=== PATIENT | male | born 1955 | race African-American/Black ===

== ENCOUNTER 2024-03-07 15:01 | Outpatient (CLI) | payer OTHER ==
[2024-03-07 17:13] LABS: Bacteria/HPF None Seen HPF (None Seen); Bilirubin Negative (Negative); Blood, Urine Trace (Negative); Clarity Clear (Clear); Glucose, Urine (Dipstick) Normal (Negative); Ketone, Urine Negative (Negative); Leukocyte Negative Leu/uL (Negative); Nitrite Negative (Negative); Protein, Urine (Dipstick) Negative (Neg-Trace); RBC/HPF 0-3 HPF (0-3); Specific Gravity, Urine 1.022 (1.002-1.036); Squamous Epithelial 0-3 HPF (0-3); WBC/HPF 0-3 HPF (0-3)
[2024-03-07 17:20] LABS: #Basophils 0.03 10x3/uL (0.0-0.2); %Basophils 0.5 % (0.0-1.0); %Eosinophils 1.7 % (0.0-10.0); %Lymphocytes 40.6 % (21.0-51.0); %Monocytes 8.5 % (0.0-10.0); %Neutrophils 48.4 % (42.0-75.0); Hematocrit 38.4 % (42.0-52.0); Hemoglobin 12.6 g/dL (14.0-18.0); Mean Corpuscular HGB CONC 32.8 g/dL (32.0-36.0); Mean Corpuscular Hemoglobin 30.2 pg (27.0-31.0); Mean Corpuscular Volume 92.1 fL (78.0-98.0); Platelet Count 212 10x3/uL (130-400); RBC Distribution Width 13.2 % (11.5-14.5); Red Blood Cell (RBC) Count 4.17 mill/uL (4.70-6.10)
[2024-03-07 17:21] LABS: Anion Gap 10 mmol/L (10-20); BUN (Urea Nitrogen) 14 mg/dL (8.4-25.7); Calc. Creatinine Clearance 0 mL/min (70-130); Calcium 9.1 mg/dL (7.8-10.44); Carbon Dioxide 26 mmol/L (23-31); Chloride 106 mmol/L (98-107); Estimated GFR 89; Glucose 126 mg/dL (80-115); PTT 38.1 sec (22.9-36.1); Potassium 3.4 mmol/L (3.5-5.1); Prothrombin Time 13.2 sec (12.0-14.7); Sodium 139 mmol/L (136-145)
== END 2024-03-07 15:02 | disposition home or self-care (01) ==
LOC: LABBT 15:01
PROVIDERS: ATTEND Urology
DX: Z01.818 Encounter for other preprocedural examination (principal); N40.1 Benign prostatic hyperplasia with lower urinary tract symptoms; R97.20 Elevated prostate specific antigen [PSA]; I10 Essential (primary) hypertension; R35.1 Nocturia
CPT/HCPCS: 71046; 80048; 81001; 84153; 85025; 85610; 85730; 87086; 93005; 93010

== ENCOUNTER 2024-03-21 05:51 | Day surgery (SDC) | payer OTHER ==
[2024-03-07 15:46] VITALS: BMI 33.5
[2024-03-21] MEDS ORDERED: Ondansetron PF 4 MG/2 ML Vial ONE (06:07)
[2024-03-21] MEDS ORDERED: Dexamethasone 4 mg/ml Vial ONE (06:07)
[2024-03-21] MEDS ORDERED: Lidocaine 2% PF 5 ML VIAL ONE (06:07)
[2024-03-21] MEDS ORDERED: Rocuronium Bromide 10 MG/ML (10ML VIAL) ONE (06:07)
[2024-03-21] MEDS ORDERED: Dexmedetomidine 200 MCG/2 ML VIAL ONE (06:07)
[2024-03-21] MEDS ORDERED: Lidocaine 1% MPF 2 ML VIAL ONE (06:28)
[2024-03-21] MEDS ORDERED: cefTRIAXone (ROCEPHIN) 2 GM VIAL ONE (06:29)
[2024-03-21] MEDS ORDERED: LevoFLOXacin D5W 500 mg (100 mL) BAG ONE (06:29)
[2024-03-21] MEDS ORDERED: Sodium Chloride 0.9% 100 ML ONE (06:29)
[2024-03-21] MEDS ORDERED: Lidocaine 1% PF 5 ML VIAL ONE (07:08)
[2024-03-21] MEDS ORDERED: PROPOFOL 20 ML ONE ×2 (07:08→07:56)
[2024-03-21] MEDS ORDERED: Midazolam HCl 2 mg/2 ml Vial ONE (07:43)
[2024-03-21] MEDS ORDERED: Tamsulosin HCl 0.4 MG CAP ONE (08:20)
[2024-03-21] MEDS ORDERED: Phenazopyridine HCl 100 MG TAB ONE (08:20)
== END 2024-03-21 09:03 | disposition home or self-care (01) ==
LOC: SDC 05:51
PROVIDERS: ATTEND Urology
PROC: 0V903ZX Drainage of Prostate, Percutaneous Approach, Diagnostic (ICD-10-PCS; principal; 2024-03-21)
DX: C61 Malignant neoplasm of prostate (principal); N40.0 Benign prostatic hyperplasia without lower urinary tract symptoms; I10 Essential (primary) hypertension; Z79.899 Other long term (current) drug therapy
CPT/HCPCS: C1747; G0416; J0696; J1100; J1956; J2250; J2405; J2704

== ENCOUNTER 2024-04-20 11:45 | Outpatient (CLI) | payer OTHER | END 2024-04-20 11:46 | disposition home or self-care (01) | LOC: PET 11:45 | PROVIDERS: ATTEND Urology | DX: C61 Malignant neoplasm of prostate (principal) | CPT/HCPCS: 78815; A9552; A9584; A9595 ==

== ENCOUNTER 2025-02-12 08:03 | Inpatient (IN) | payer MEDICARE ==
[2025-02-12 08:28] LABS: #Basophils 0.03 10x3/uL (0.0-0.2); #Eosinophils 0.08 10x3/uL (0.0-0.7); #Monocytes 0.45 10x3/uL (0.11-0.59); #Neutrophils 2.86 10x3/uL (1.40-6.50); %Basophils 0.5 % (0.0-1.0); %Eosinophils 1.3 % (0.0-10.0); %Lymphocytes 42.9 % (21.0-51.0); %Monocytes 7.5 % (0.0-10.0); %Neutrophils 47.5 % (42.0-75.0); Hematocrit 35.5 % (42.0-52.0); Hemoglobin 12.1 g/dL (14.0-18.0); Mean Corpuscular Hemoglobin 28.5 pg (27.0-31.0); Mean Corpuscular Volume 83.5 fL (78.0-98.0); Platelet Count 202 10x3/uL (130-400); Red Blood Cell (RBC) Count 4.25 mill/uL (4.70-6.10); White Blood Cell (WBC) Count 6.02 10x3/uL (4.8-10.8)
[2025-02-12 09:00] LABS: ALT (SGPT) 10 U/L (Less than 45); AST (SGOT) 15 U/L (11-34); Albumin 3.1 g/dL (3.1-4.5); Alkaline Phosphatase 90 U/L (40-110); Anion Gap 11 mmol/L (10-20); BUN (Urea Nitrogen) 6 mg/dL (8.4-25.7); Bilirubin, Total 0.6 mg/dL (0.3-1.2); Calc. Creatinine Clearance 0 mL/min (70-130); Calcium 8.7 mg/dL (7.8-10.44); Carbon Dioxide 30 mmol/L (23-31); Chloride 99 mmol/L (98-107); Globulin 3.2 g/dL (2.4-3.5); Glucose 373 mg/dL (83-110); Potassium 2.1 mmol/L (3.5-5.1); Sodium 138 mmol/L (136-145)
[2025-02-12] MEDS ORDERED: hydrALAZINE 20 MG/ML VIAL ONE (09:22)
[2025-02-12 09:38] LABS: INR-International Normal Ratio 1.0; Prothrombin Time 13.0 sec (12.0-14.7)
[2025-02-12 09:39] LABS: PTT 32.7 sec (22.9-36.1)
[2025-02-12 10:44] LABS: Magnesium 1.4 mg/dL (1.6-2.6)
[2025-02-12] MEDS ORDERED: Magnesium 2 GM/50 ML BAG (IN WATER) ONE (10:53)
[2025-02-12] MEDS ORDERED: Acetaminophen 325 MG TAB PO PRN (11:52)
[2025-02-12] MEDS ORDERED: Melatonin 3 MG TAB PO PRN (11:52)
[2025-02-12] MEDS ORDERED: Electrolyte Replacement Protocol 1 EACH FS SCH (12:00)
[2025-02-12 12:25] VITALS: BMI 25.8
[2025-02-12] MEDS: Magnesium 2 GM/50 ML(in water) 2 GM in Premix 1 BAG IVPB SCH (12:36)
[2025-02-12] MEDS: NS 0.9% w/ 40 MEQ KCL 1,000 ML IV SCH (12:36)
[2025-02-12 13:13] LABS: Anion Gap 15 mmol/L (10-20); BUN (Urea Nitrogen) 6 mg/dL (8.4-25.7); Calc. Creatinine Clearance 121 mL/min (70-130); Calcium 9.2 mg/dL (7.8-10.44); Carbon Dioxide 29 mmol/L (23-31); Chloride 96 mmol/L (98-107); Glucose 418 mg/dL (83-110); Potassium 2.5 mmol/L (3.5-5.1); Sodium 137 mmol/L (136-145)
[2025-02-12] MEDS ORDERED: Dextrose 50% Abboject 50 ML SYRINGE SLOW IVP PRN (13:45)
[2025-02-12] MEDS ORDERED: Glucagon 1 MG/ML KIT IM PRN (13:45)
[2025-02-12] MEDS ORDERED: Iopamidol-370 76% 500 ML MDV (1 ML CHARGE) ONE (14:44)
[2025-02-12 15:56] LABS: Influenza A by NAA Not Detected (NotDetected); Influenza B by NAA Not Detected (NotDetected); RSV by NAA Not Detected (NotDetected); SARS-CoV-2 NAA Rapid Test Not Detected (NotDetected)
[2025-02-12 18:16] LABS: Potassium 2.7 mmol/L (3.5-5.1)
[2025-02-12] MEDS: Senokot S 8.6-50 MG TAB PO PRN (21:35)
[2025-02-13 04:41] LABS: #Basophils 0.03 10x3/uL (0.0-0.2); #Eosinophils 0.07 10x3/uL (0.0-0.7); #Monocytes 0.44 10x3/uL (0.11-0.59); #Neutrophils 2.70 10x3/uL (1.40-6.50); %Basophils 0.5 % (0.0-1.0); %Eosinophils 1.1 % (0.0-10.0); %Lymphocytes 47.4 % (21.0-51.0); %Monocytes 7.1 % (0.0-10.0); %Neutrophils 43.6 % (42.0-75.0); Hematocrit 35.0 % (42.0-52.0); Hemoglobin 11.6 g/dL (14.0-18.0); Mean Corpuscular Hemoglobin 28.2 pg (27.0-31.0); Mean Corpuscular Volume 85.2 fL (78.0-98.0); Platelet Count 131 10x3/uL (130-400); Red Blood Cell (RBC) Count 4.11 mill/uL (4.70-6.10); White Blood Cell (WBC) Count 6.20 10x3/uL (4.8-10.8)
[2025-02-13 05:14] LABS: Anion Gap 14 mmol/L (10-20); BUN (Urea Nitrogen) 5 mg/dL (8.4-25.7); Calc. Creatinine Clearance 142 mL/min (70-130); Calcium 8.7 mg/dL (7.8-10.44); Carbon Dioxide 28 mmol/L (23-31); Chloride 101 mmol/L (98-107); Glucose 199 mg/dL (83-110); Potassium 2.5 mmol/L (3.5-5.1); Sodium 140 mmol/L (136-145)
[2025-02-13] MEDS: Potassium Chloride 20 MEQ in Premix 1 BAG IVPB SCH (05:28)
[2025-02-13] MEDS: Magnesium 2 GM/50 ML(in water) 2 GM in Premix 1 BAG IVPB SCH (11:14)
[2025-02-13] MEDS: Losartan 25 MG TAB PO SCH (11:15)
[2025-02-13] MEDS: Spironolactone 25 MG TAB PO SCH (11:15)
[2025-02-13 14:50] LABS: Potassium 3.2 mmol/L (3.5-5.1)
[2025-02-13] MEDS: Senokot S 8.6-50 MG TAB PO SCH (21:00)
[2025-02-14 05:16] LABS: #Basophils Less than 0.03 10x3/uL (0.0-0.2); #Eosinophils 0.04 10x3/uL (0.0-0.7); #Monocytes 0.51 10x3/uL (0.11-0.59); #Neutrophils 2.58 10x3/uL (1.40-6.50); %Basophils 0.3 % (0.0-1.0); %Eosinophils 0.7 % (0.0-10.0); %Lymphocytes 47.3 % (21.0-51.0); %Monocytes 8.5 % (0.0-10.0); %Neutrophils 42.9 % (42.0-75.0); Hematocrit 32.5 % (42.0-52.0); Hemoglobin 10.9 g/dL (14.0-18.0); Mean Corpuscular Hemoglobin 28.6 pg (27.0-31.0); Mean Corpuscular Volume 85.3 fL (78.0-98.0); Platelet Count 181 10x3/uL (130-400); Red Blood Cell (RBC) Count 3.81 mill/uL (4.70-6.10); White Blood Cell (WBC) Count 6.01 10x3/uL (4.8-10.8)
[2025-02-14 05:51] LABS: Anion Gap 13 mmol/L (10-20); BUN (Urea Nitrogen) 7 mg/dL (8.4-25.7); Calc. Creatinine Clearance 127 mL/min (70-130); Calcium 8.7 mg/dL (7.8-10.44); Carbon Dioxide 26 mmol/L (23-31); Chloride 98 mmol/L (98-107); Glucose 433 mg/dL (83-110); Magnesium 1.6 mg/dL (1.6-2.6); Potassium 3.3 mmol/L (3.5-5.1); Sodium 134 mmol/L (136-145)
[2025-02-14] MEDS ORDERED: ABIRATERONE ACETATE 250 MG PO SCH (09:00)
[2025-02-14] MEDS: Magnesium 2 GM/50 ML(in water) 2 GM in Premix 1 BAG IVPB SCH (09:17)
[2025-02-14] MEDS: Spironolactone 25 MG TAB PO SCH (09:18)
[2025-02-14] MEDS: Losartan 25 MG TAB PO SCH (09:19)
[2025-02-14] MEDS: metFORMIN 500 MG TAB PO SCH ×2 (09:20→20:37)
[2025-02-14] MEDS: Aspirin Chewable 81 MG TAB PO SCH (09:21)
[2025-02-14] MEDS: Insulin Glargine 30 UNITS/0.3 ML VIAL SC SCH (11:13)
[2025-02-14 14:59] VITALS: BMI 25.8
[2025-02-14 15:28] LABS: Potassium 3.3 mmol/L (3.5-5.1)
[2025-02-14] MEDS: Mirtazapine 15 MG TAB PO SCH (20:37)
[2025-02-15 01:31] LABS: Potassium 3.1 mmol/L (3.5-5.1)
[2025-02-15 05:00] LABS: #Basophils 0.03 10x3/uL (0.0-0.2); #Eosinophils 0.08 10x3/uL (0.0-0.7); #Monocytes 0.57 10x3/uL (0.11-0.59); #Neutrophils 2.69 10x3/uL (1.40-6.50); %Basophils 0.4 % (0.0-1.0); %Eosinophils 1.2 % (0.0-10.0); %Lymphocytes 50.0 % (21.0-51.0); %Monocytes 8.4 % (0.0-10.0); %Neutrophils 39.9 % (42.0-75.0); Hematocrit 31.7 % (42.0-52.0); Hemoglobin 10.6 g/dL (14.0-18.0); Mean Corpuscular Hemoglobin 28.6 pg (27.0-31.0); Mean Corpuscular Volume 85.4 fL (78.0-98.0); Platelet Count 181 10x3/uL (130-400); Red Blood Cell (RBC) Count 3.71 mill/uL (4.70-6.10); White Blood Cell (WBC) Count 6.76 10x3/uL (4.8-10.8)
[2025-02-15 06:05] LABS: Anion Gap 10 mmol/L (10-20); BUN (Urea Nitrogen) 7 mg/dL (8.4-25.7); Calc. Creatinine Clearance 133 mL/min (70-130); Calcium 8.6 mg/dL (7.8-10.44); Carbon Dioxide 25 mmol/L (23-31); Cardiac Risk 3.3 (Less than 4.5); Chloride 108 mmol/L (98-107); Cholesterol 123 mg/dl (< 200 Desired); Glucose 236 mg/dL (83-110); HDL Cholesterol 37 mg/dL (>60 Neg Risk); LDL Cholesterol, Calculated 73 mg/dL; Magnesium 1.5 mg/dL (1.6-2.6); Potassium 3.2 mmol/L (3.5-5.1); Sodium 140 mmol/L (136-145); Triglycerides 66 mg/dL (Less than 150)
[2025-02-15] MEDS: Magnesium 2 GM/50 ML(in water) 2 GM in Premix 1 BAG IVPB SCH (09:07)
[2025-02-15] MEDS: Insulin Glargine 30 UNITS/0.3 ML VIAL SC SCH ×2 (09:08→21:03)
[2025-02-15] MEDS: Multivit, Therapeutic 1 TAB PO SCH (09:08)
[2025-02-15 14:44] LABS: Potassium 3.8 mmol/L (3.5-5.1)
[2025-02-16 05:28] LABS: #Basophils 0.03 10x3/uL (0.0-0.2); #Eosinophils 0.08 10x3/uL (0.0-0.7); #Monocytes 0.53 10x3/uL (0.11-0.59); #Neutrophils 2.23 10x3/uL (1.40-6.50); %Basophils 0.5 % (0.0-1.0); %Eosinophils 1.2 % (0.0-10.0); %Lymphocytes 56.4 % (21.0-51.0); %Monocytes 8.0 % (0.0-10.0); %Neutrophils 33.7 % (42.0-75.0); Hematocrit 30.8 % (42.0-52.0); Hemoglobin 10.3 g/dL (14.0-18.0); Mean Corpuscular Hemoglobin 28.6 pg (27.0-31.0); Mean Corpuscular Volume 85.6 fL (78.0-98.0); Platelet Count 149 10x3/uL (130-400); Red Blood Cell (RBC) Count 3.60 mill/uL (4.70-6.10); White Blood Cell (WBC) Count 6.61 10x3/uL (4.8-10.8)
[2025-02-16 06:05] LABS: Anion Gap 11 mmol/L (10-20); BUN (Urea Nitrogen) 8 mg/dL (8.4-25.7); Calc. Creatinine Clearance 113 mL/min (70-130); Calcium 8.6 mg/dL (7.8-10.44); Carbon Dioxide 25 mmol/L (23-31); Chloride 106 mmol/L (98-107); Glucose 332 mg/dL (83-110); Potassium 3.1 mmol/L (3.5-5.1); Sodium 139 mmol/L (136-145)
[2025-02-16] MEDS: Insulin Glargine 30 UNITS/0.3 ML VIAL SC SCH (10:40)
[2025-02-16 11:29] VITALS: BP 161/84; TEMP 97.5
== END 2025-02-16 15:47 | disposition home or self-care (01) | DRG 640 ==
LOC: ERS 08:03 → OBS 10:51 → OBSVTOIN 02-13 17:41
PROVIDERS: ADMIT Internal Medicine; ATTEND Hospitalist
DX: E87.6 Hypokalemia (principal); E43 Unspecified severe protein-calorie malnutrition; R07.9 Chest pain, unspecified; C61 Malignant neoplasm of prostate; I10 Essential (primary) hypertension; E83.42 Hypomagnesemia; N40.0 Benign prostatic hyperplasia without lower urinary tract symptoms; E11.9 Type 2 diabetes mellitus without complications; E11.65 Type 2 diabetes mellitus with hyperglycemia; R63.0 Anorexia; Z98.890 Other specified postprocedural states; Z88.0 Allergy status to penicillin; Z68.25 Body mass index [BMI] 25.0-25.9, adult
CPT/HCPCS: 36415; 36416; 71045; 71275; 74177; 80048; 80053; 80061; 82533; 83036; 83735; 83880; 84153; 84443; 84484; 85025; 85610; 85730; 87637; 93005; 93306; 94760; 96366; 96374; 96375; 96376; G0378; J0360; J1815; J3475; J3480; J7030; J7512; Q9967